=== PATIENT | female | born 1950 | race Two or more races ===

== ENCOUNTER 2016-08-16 20:02 | Emergency (ER) | payer BC ==
[~2016-08-16] VITALS: Ht 154.9 cm; Wt 51.3 kg
[2016-08-16 22:42] VITALS: BP 150/81
== END 2016-08-16 22:47 | disposition home or self-care (01) ==
LOC: ER 21:54
DX: S16.1XXA Strain of muscle, fascia and tendon at neck level, initial encounter (principal); S29.012A Strain of muscle and tendon of back wall of thorax, initial encounter; Z85.3 Personal history of malignant neoplasm of breast; V89.2XXA Person injured in unspecified motor-vehicle accident, traffic, initial encounter; W22.10XA Striking against or struck by unspecified automobile airbag, initial encounter; Y93.89 Activity, other specified; Y92.488 Other paved roadways as the place of occurrence of the external cause; Y99.8 Other external cause status
CPT/HCPCS: 99283

== ENCOUNTER → 2016-12-02 | Outpatient (CLI) | payer BC ==
[2016-12-02 08:54] LABS: CARBON DIOXIDE 31 mEq/L (21-32); CHLORIDE 103 mEq/L (98-107)
[2016-12-02 09:20] LABS: VITAMIN B12 SERUM 553 pg/mL (211-911)
== END | disposition home or self-care (01) ==
LOC: LAB 06:44
DX: M54.9 Dorsalgia, unspecified (principal)
CPT/HCPCS: 36415; 80048; 82607; 83036